=== PATIENT | male | born 1955 | race Caucasian/White ===

== ENCOUNTER → 2018-11-29 | Outpatient (CLI) | payer OTHER ==
[~2018-11-29] MED LIST: BUPIVACAINE MPF 0.25% 10 ML VIAL. ONE; DEXAMETHASONE SOD PHOS 10 MG/ML VIAL ONE; IOHEXOL 300 MG/ML 50 ML VIAL. ONE; LIDOCAINE 1% PF 30 ML VIAL. ONE
== END | disposition home or self-care (01) ==
LOC: SURG 11:59
PROVIDERS: ATTEND Anesthesiology Pain Medicine
DX: M54.16 Radiculopathy, lumbar region (principal); M19.90 Unspecified osteoarthritis, unspecified site; Z98.890 Other specified postprocedural states; Z79.899 Other long term (current) drug therapy; F17.210 Nicotine dependence, cigarettes, uncomplicated; Z72.89 Other problems related to lifestyle
CPT/HCPCS: 64483; 64484; J1100; J2001; J3490; Q9967

== ENCOUNTER → 2021-09-09 | Outpatient (CLI) | payer OTHER, MEDICARE ==
--- NOTE | 2021-09-09 17:09 | RAD ---
Study: XR SHOULDER_LEFT 2+ VIEWS Indication: Left shoulder pain. Comparison: None. Findings: No acute fracture. Alignment is within normal limits. No advanced arthrosis at the glenohumeral or ac romioclavicular articulations. Within normal limits acromiohumeral interval. Impression: No fracture, malalignment or advanced arthrosis at the left shoulder. Electronically signed by: EFE CAMARGO MD (09/09/2021 5:07 PM) [id number]
== END ==
LOC: RAD 12:56
PROVIDERS: ATTEND Physician Assistant
DX: M25.512 Pain in left shoulder (principal)
CPT/HCPCS: 73030